=== PATIENT | male | born 1960 | race Caucasian/White ===

== ENCOUNTER 2023-02-06 11:22 | Day surgery (SDC) | payer BC ==
[2023-01-31 16:13] LABS: BASOPHILS # (AUTO) 0.1 X10'3 (0-0.2); BASOPHILS % (AUTO) 1.1 % (0-1); EOSINOPHILS # (AUTO) 0.1 X10'3 (0-0.9); EOSINOPHILS % (AUTO) 1.3 % (0-6); HEMATOCRIT 43.7 % (42.0-52.0); HEMOGLOBIN 15.3 g/dl (14.0-17.9); LYMPHOCYTES % (AUTO) 28.1 % (21-51); MEAN CORPUSCULAR HEMOGLOBIN 31.2 PG (27.0-31.0); MEAN CORPUSCULAR VOLUME 89.1 FL (78-98); MEAN PLATELET VOLUME 8.8 FL (7.4-10.4); MONOCYTES # (AUTO) 0.8 X10'3 (0-0.9); MONOCYTES % (AUTO) 7.2 % (2-12); NEUTROPHILS # (AUTO) 6.6 X10'3 (1.8-7.7); NEUTROPHILS % (AUTO) 62.3 % (42-75); PLATELET COUNT 219 X10'3 (140-440); RED BLOOD COUNT 4.91 X10'6 (4.70-6.10); RED CELL DISTRIBUTION WIDTH 13.9 % (11.5-14.5); WHITE BLOOD COUNT 10.6 X10'3 (4.5-11.0)
[2023-01-31 16:15] LABS: APTT 26 SECONDS (22-32); PROTHROMBIN TIME 10.6 SECONDS (9.0-12.0)
[2023-01-31 16:16] LABS: ALBUMIN 3.7 G/DL (3.4-5.0); ANION GAP 8 (8-16); BLOOD UREA NITROGEN 6 MG/DL (7-18); BUN/CREATININE RATIO 7.9 (10.0-20.0); CALCIUM 8.8 MG/DL (8.5-10.1); CHLORIDE 98 MMOL/L (99-107); CHOL/HDL RATIO 2.9 (0.00-4.99); CHOLESTEROL 132 MG/DL (0-200); CREATININE 0.76 MG/DL (0.60-1.10); GLUCOSE 235 MG/DL (70-104); HDL CHOLESTEROL 45 MG/DL (35-60); LDL CHOLESTEROL 75 MG/DL (50-100); POTASSIUM 4.2 MMOL/L (3.5-5.1); SODIUM 132 MMOL/L (135-145); TOTAL CARBON DIOXIDE 26.2 MMOL/L (24-32); TRIGLYCERIDES 91 MG/DL (20-135); eGFR > 90 ML/MIN
[2023-02-06] VITALS (8 sets, daily range): BP systolic 109–127; BP diastolic 73–87; PULSE 58–73; RESP 12–13; TEMP 98.3; O2SAT 93–98
[~2023-02-06] VITALS: Ht 177.8 cm; Wt 103.3 kg
[2023-02-06] MEDS ORDERED: diphenhydrAMINE 25mg capsule PO PRN (11:45)
[2023-02-06] MEDS ORDERED: normal saline 1,000 ML IV SCH (11:45)
[2023-02-06] MEDS ORDERED: LORazepam 0.5 MG tablet PO PRN (11:45)
[2023-02-06] MEDS ORDERED: CLOP75TA34 PO (12:03)
[2023-02-06] MEDS ORDERED: OLME20TA23 PO (12:03)
[2023-02-06] MEDS ORDERED: GABA-530 PO (12:03)
[2023-02-06] MEDS ORDERED: METO-384 PO (12:03)
[2023-02-06] MEDS ORDERED: OXCA150T5 PO (12:03)
[2023-02-06] MEDS ORDERED: METF-900 PO (12:03)
[2023-02-06] MEDS ORDERED: ATOR40TA72 PO (12:03)
[2023-02-06] MEDS ORDERED: AMOX875T10 PO (12:03)
[2023-02-06] MEDS ORDERED: ZOLP10TA PO (12:03)
[2023-02-06] MEDS ORDERED: METH4TAB81 (12:04)
[2023-02-06] MEDS ORDERED: verapamil 2.5 mg/ml inj IV ONE (13:12)
[2023-02-06] MEDS ORDERED: LIDOcaine 1% (10mg/ml) 2ml vial ONE (13:12)
[2023-02-06] MEDS ORDERED: iohexol 350MG/ML 100ml bottle IV ONE (13:13)
[2023-02-06] MEDS ORDERED: midazolam 1 mg/ML 2ml injection ONE (13:13)
[2023-02-06] MEDS ORDERED: fentaNYL/PF 50MCG/1 ML 2ML syringe ONE (13:13)
[2023-02-06] MEDS ORDERED: heparin 1,000unit/ml 10ml vial 10 ML ONE (13:13)
[2023-02-06] MEDS ORDERED: nitroGLYCERIN 500mcg/5mL D5W 5 ML IV ONE (13:51)
[2023-02-06] MEDS ORDERED: iohexol 350 MG/ML 50ML vial IV ONE (14:00)
== END 2023-02-06 16:20 | disposition home or self-care (01) ==
LOC: SSTAY O 11:22
PROVIDERS: ATTEND Student in an Organized Health Care Education/Training Program
DX: I71.21 Aneurysm of the ascending aorta, without rupture (principal); I25.10 Atherosclerotic heart disease of native coronary artery without angina pectoris; E78.5 Hyperlipidemia, unspecified; I10 Essential (primary) hypertension; Z86.73 Personal history of transient ischemic attack (TIA), and cerebral infarction without residual deficits; Z79.899 Other long term (current) drug therapy; Z79.01 Long term (current) use of anticoagulants
CPT/HCPCS: 36415; 80048; 80061; 82948; 85025; 85610; 85730; 93005; 93458; 93567; 99152; A6258; J1644; J2250; J3010; J3490; J7030; Q0163; Q9967; A6402; C1894

== ENCOUNTER 2023-02-10 16:20 | Emergency (ER) | payer BC ==
[~2023-02-10] VITALS: Ht 177.8 cm; Wt 101.0 kg
[~2023-02-10 16:20] MED LIST: AMOX875T10 PO; ATOR40TA72 PO; CLOP75TA34 PO; GABA-530 PO; METF-900 PO; METH4TAB81; METO-384 PO; OLME20TA23 PO; OXCA150T5 PO; ZOLP10TA PO
[2023-02-10 17:37] LABS: BASOPHILS % (AUTO) 0.4 % (0-1); EOSINOPHILS # (AUTO) 0.1 X10'3 (0-0.9); EOSINOPHILS % (AUTO) 0.6 % (0-6); HEMATOCRIT 46.7 % (42.0-52.0); LYMPHOCYTES # (AUTO) 1.7 X10'3 (1.1-4.8); LYMPHOCYTES % (AUTO) 17.3 % (21-51); MEAN CORPUSCULAR HGB CONC 34.2 g/dL (33.0-36.5); MEAN CORPUSCULAR VOLUME 90.5 FL (78-98); MEAN PLATELET VOLUME 8.3 FL (7.4-10.4); MONOCYTES # (AUTO) 0.7 X10'3 (0-0.9); MONOCYTES % (AUTO) 6.6 % (2-12); NEUTROPHILS # (AUTO) 7.6 X10'3 (1.8-7.7); NEUTROPHILS % (AUTO) 75.1 % (42-75); PLATELET COUNT 216 X10'3 (140-440); RED BLOOD COUNT 5.15 X10'6 (4.70-6.10); RED CELL DISTRIBUTION WIDTH 13.8 % (11.5-14.5); WHITE BLOOD COUNT 10.1 X10'3 (4.5-11.0)
[2023-02-10 17:47] LABS: APTT 26 SECONDS (22-32); PROTHROMBIN TIME 10.8 SECONDS (9.0-12.0)
[2023-02-10 18:00] LABS: LIPASE 32 U/L (16-77); MAGNESIUM 1.8 MG/DL (1.5-2.4); PRO BRAIN NATRIURETIC PEPTIDE 30 PG/ML (0-125)
[2023-02-10 18:15] LABS: D-DIMER < 0.19 MG/L FEU (0-0.50)
[2023-02-10 18:29] LABS: BILIRUBIN,URINE NEGATIVE (Neg); CLARITY,URINE CLEAR (Clear); COLOR,URINE STRAW (Yellow); GLUCOSE, URINE 100 mg/dl (Neg); KETONES,URINE NEGATIVE (Neg); LEUKOCYTE ESTERASE ,URINE NEGATIVE (Neg); NITRITES, URINE NEGATIVE (Neg); OCCULT BLOOD,URINE NEGATIVE (Neg); PH,URINE 6.5 (4.8-8.0); PROTEIN,URINE NEGATIVE (Neg); UROBILINOGEN,URINE 0.2 E.U/dL (0.2-1.0)
[2023-02-10 18:32] LABS: UA COLLECTION TYPE VOIDED
[2023-02-10 19:18] VITALS: TEMP 98
[2023-02-10 19:44] VITALS: BP 104/72; PULSE 73; RESP 16; O2SAT 98
== END 2023-02-10 20:09 | disposition home or self-care (01) ==
LOC: ER 16:21
DX: I71.21 Aneurysm of the ascending aorta, without rupture (principal); R42 Dizziness and giddiness
CPT/HCPCS: 36415; 70450; 71045; 81003; 82948; 83690; 83735; 83880; 84484; 85025; 85379; 85610; 85730; 93005; 99285; J7030